=== PATIENT | male | born 1995 | race Caucasian/White ===

== ENCOUNTER 2024-07-21 17:00 | Emergency (ER) | payer OTHER ==
[~2024-07-21] VITALS: Ht 175.3 cm; Wt 78.0 kg
[2024-07-21] MEDS: HYDROcodone/acetaminophen 10/325mg tab PO ONE (17:27)
[2024-07-21] MEDS: TETanus/Pertussis (Acell)/Diphther VAC/PF (Tdap-Adult) 0.5ml syringe IMVAC ONE (18:10)
[2024-07-21] MEDS ORDERED: LIDOcaine 1% W/epiNEPHrine 1:100,000 20ml vial IJ ONE (18:10)
[2024-07-21] MEDS ORDERED: HYDR-3965 PO (19:04)
[2024-07-21] MEDS: ketorolac trometh 15mg/ml vial 15 MG/ML ML IM ONE (19:44)
[2024-07-21] MEDS: HYDROcodone/acetaminophen 5mg/325mg tablet PO ONE (19:44)
[2024-07-21 20:20] VITALS: BP 119/62; PULSE 89; RESP 18; TEMP 98; O2SAT 99
== END 2024-07-21 20:22 | disposition home or self-care (01) ==
LOC: ER 17:01
DX: S43.102A Unspecified dislocation of left acromioclavicular joint, initial encounter (principal); S31.114A Laceration without foreign body of abdominal wall, left lower quadrant without penetration into peritoneal cavity, initial encounter; M25.572 Pain in left ankle and joints of left foot; X83.8XXA Intentional self-harm by other specified means, initial encounter; Y93.89 Activity, other specified; Y92.89 Other specified places as the place of occurrence of the external cause; Y99.8 Other external cause status
CPT/HCPCS: 12001; 73030; 73590; 96372; 99284; J1885; A4565; A6449